=== PATIENT | male | born 1970 | race Hispanic/Latino ===

== ENCOUNTER 2020-06-15 09:40 | Emergency (ER) | payer OTHER | END 2020-06-15 10:20 | disposition left against medical advice (07) | LOC: EDH 09:40 | DX: Z53.29 Procedure and treatment not carried out because of patient's decision for other reasons (principal); I12.0 Hypertensive chronic kidney disease with stage 5 chronic kidney disease or end stage renal disease; E11.22 Type 2 diabetes mellitus with diabetic chronic kidney disease; N18.6 End stage renal disease; Z99.2 Dependence on renal dialysis | CPT/HCPCS: 93005 ==